=== PATIENT | male | born 1955 | race Caucasian/White ===

== ENCOUNTER → 2018-04-21 12:04 | Outpatient (CLI) | payer BC, SELFPAY ==
[2018-04-21 14:46] LABS: Anion Gap 14.4 mEq/L (5-15); Blood Urea Nitrogen 9 mg/dL (7-18); Calcium 9.6 mg/dL (8.5-10.1); Carbon Dioxide 28 mmol/L (21.0-32.0); Chloride 106 mmol/L (98-107); Estimated Glomerular Filt Rate 97 ml/min (>60); GFR (African American) 118 ML/MIN (>60); Glucose 97 mg/dL (74-106); Potassium 4.4 mmoL/L (3.5-5.1); Sodium 144 mmol/L (136-145)
== END ==
PROVIDERS: Family Provider Family Medicine; PCP Family Medicine; Visit Provider Internal Medicine Gastroenterology
DX: R19.5 Other fecal abnormalities (principal); D50.9 Iron deficiency anemia, unspecified
CPT/HCPCS: 36415; 80048

== ENCOUNTER → 2018-04-28 10:25 | Outpatient (CLI) | payer BC, SELFPAY ==
[2018-04-28 11:12] LABS: Blood Urea Nitrogen 8 mg/dL (7-18); Creatinine,Serum 0.81 mg/dL (0.70-1.30); Estimated Glomerular Filt Rate 96 ml/min (>60); GFR (African American) 116 ML/MIN (>60)
== END ==
PROVIDERS: PCP Family Medicine; Visit Provider Internal Medicine Gastroenterology
DX: R10.9 Unspecified abdominal pain (principal); D64.9 Anemia, unspecified
CPT/HCPCS: 36415; 82565; 84520

== ENCOUNTER → 2018-05-01 08:34 | Outpatient (CLI) | payer BC, SELFPAY | PROVIDERS: PCP Family Medicine; Visit Provider Internal Medicine Gastroenterology | DX: R10.9 Unspecified abdominal pain (principal); R63.4 Abnormal weight loss; D64.9 Anemia, unspecified ==

== ENCOUNTER → 2018-05-04 07:42 | Outpatient (CLI) | payer BC, SELFPAY ==
--- NOTE | 2018-05-04 08:01 | CT_ITS ---
CT abdomen pelvis w con CLINICAL INDICATION: Abdominal pain and weight loss with anemia ITS.REASON: ABD PAIN, WEIGHT LOSS, ANEMIA ORDERING PHYSICIAN: Franko Segal MD PATIENT AGE: 63 years COMPARISON: None TECHNIQUE: Axial images obtained with sagittal and coronal reformats. Images are obtained immediately post contrast injection and with a 62nd delay. All CT scans at the facility use one or more dose reduction, viz: automated exposure control, ma/kV adjustment per patient size (including targeted exams where dose is matched to indication, i.e. head), or iterative reconstruction technique. PROCEDURE: Oral Contrast: Breeza 1500 mL's IV Contrast: 100 mL of Isovue-370. FINDINGS: No acute finding in the lower chest. There is a subpleural nodular opacity in the left lower lobe laterally at 12 x 6 mm. An additional 5 mm nodular subpleural opacity is present in the left lower lungs inferiorly. A 6 mm subpleural nodule is present in the right lower lung zone anteriorly. The medium-sized hiatal hernia. Surgical clips are present in the epigastric region. The liver, spleen, adrenal glands, and kidneys have an unremarkable appearance aside from a 13 mm right renal cyst which is along the lateral aspect of the right kidney. There has been prior cholecystectomy. There is an atypical collection measuring 6.2 cm AP, 4.8 cm transverse, and 4.17 m cephalad to caudad which is situated inferior to the medial aspect of the spleen, posterior and inferior to the upper body of the stomach, and along the superior aspect of the junction of the pancreatic body and tail. This has a slightly heterogeneous appearance mostly isodense with some increased density along the inferior aspect of this collection. There are a few interspersed gas bubbles. This could represent an abscess or an infected pseudocyst. A necrotic mass arising from the posterior aspect of the body of the stomach or the superior aspect of the pancreas is also a consideration. This is not amenable to percutaneous aspiration/drainage but could be accessed by the transgastric approach. I would recommend a repeat CT scan with positive oral contrast before any intervention to sure this does not represent an abnormally dilated loop of bowel which does not appear to be the case however, negative oral contrast is utilized for CT enterography on today's exam. A linear metallic density is present in the right lower quadrant presumed to represent a surgical clip. Clip is also present in the epigastric region. No intestinal obstruction or free air. No evidence of appendicitis or diverticulitis. 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 The SMA has an unremarkable appearance. No evidence of aortic aneurysm. The JOE is patent. No acute bony anomalies. There is a 4.6 cm fluid collection in the right pelvic region which is felt to represent a bladder diverticulum. There is mild thickening of the urinary bladder wall. Prostate is enlarged at 6.4 x 5.7 cm. Coarse calcification is present centrally. IMPRESSION: 1. Abnormal 6 x 4.8 cm left upper quadrant fluid collection sitting superior to the junction of the body and tail the pancreas, medial to the spleen, along the posterior and infra aspect of the history of wall the stomach. This may represent an abscess or infected pseudocyst. A necrotic mass in the stomach or pancreas is also a consideration. This is not accessible to percutaneous aspiration but should be accessible to endoscopic transgastric aspiration. However, with strongly suggest repeat exam with positive oral contrast to assure this does not represent an abnormally dilated loop of bowel. 2. Bilateral lower lobe pulmonary nodules. Recommend [address] chest follow-up. 3. Enlarged prostate. 4. Right-sided urinary bladder diverticulum
== END ==
PROVIDERS: PCP Family Medicine; Visit Provider Internal Medicine Gastroenterology
DX: R10.9 Unspecified abdominal pain (principal); R63.4 Abnormal weight loss; D64.9 Anemia, unspecified
CPT/HCPCS: 74177; Q9967

== ENCOUNTER 2020-05-19 13:20 | Outpatient (CLI) | payer MEDICARE, SELFPAY ==
[2020-05-19 13:40] VITALS: BP 126/67; PULSE 83; RESP 18; TEMP 36.2; O2SAT 99
[2020-05-19 14:05] VITALS: BP 138/77; PULSE 85; RESP 18
== END 2020-05-19 14:05 | disposition home or self-care (01) ==
LOC: INF 13:23
PROVIDERS: PCP Family Medicine; Visit Provider Internal Medicine Medical Oncology
DX: D50.9 Iron deficiency anemia, unspecified (principal); K90.9 Intestinal malabsorption, unspecified
CPT/HCPCS: 96365; Q0138

== ENCOUNTER 2020-05-23 13:10 | Outpatient (CLI) | payer MEDICARE, SELFPAY ==
[2020-05-23 13:30] VITALS: BP 129/67; PULSE 88; RESP 18; TEMP 36.3; O2SAT 100
[2020-05-23 13:50] VITALS: BP 117/66; PULSE 83; RESP 18
== END 2020-05-23 14:00 | disposition home or self-care (01) ==
LOC: INF 13:14
PROVIDERS: Visit Provider Internal Medicine Medical Oncology
DX: K90.9 Intestinal malabsorption, unspecified (principal)
CPT/HCPCS: 96374; Q0138

== ENCOUNTER 2020-08-25 10:05 | Outpatient (CLI) | payer MEDICARE, SELFPAY ==
[2020-08-25 10:55] VITALS: BP 99/72; PULSE 86; RESP 18; O2SAT 98
[2020-08-25 11:15] VITALS: BP 135/71; PULSE 81; RESP 18
[2020-08-25 11:46] VITALS: BP 129/69; PULSE 81; RESP 18
== END 2020-08-25 11:46 | disposition home or self-care (01) ==
LOC: INF 10:08
PROVIDERS: Visit Provider Physician Assistant Medical
DX: K90.9 Intestinal malabsorption, unspecified (principal); D50.9 Iron deficiency anemia, unspecified
CPT/HCPCS: 96374; Q0138

== ENCOUNTER 2020-08-29 10:09 | Outpatient (CLI) | payer MEDICARE, SELFPAY ==
[2020-08-29 10:57] VITALS: BP 128/75; PULSE 84; RESP 18; TEMP 36.4; O2SAT 100
[2020-08-29 11:27] VITALS: BP 130/82; PULSE 79; RESP 16; O2SAT 100
[2020-08-29 11:55] VITALS: BP 124/79; PULSE 82; RESP 16; TEMP 36.5; O2SAT 99
== END 2020-08-29 12:00 | disposition home or self-care (01) ==
LOC: INF 10:09
DX: D50.9 Iron deficiency anemia, unspecified (principal)
CPT/HCPCS: 96365; Q0138

== ENCOUNTER → 2020-10-21 10:11 | Outpatient (POV) | payer MEDICARE, SELFPAY | PROVIDERS: Visit Provider Dermatology | DX: Z00.00 Encounter for general adult medical examination without abnormal findings (principal) ==

== ENCOUNTER → 2020-12-23 10:10 | Outpatient (CLI) | payer MEDICARE, SELFPAY ==
[2020-12-23 10:50] VITALS: BP 129/70; PULSE 79; RESP 17; TEMP 36.8; O2SAT 97
[2020-12-23 11:25] VITALS: BP 121/71; PULSE 73; RESP 17; TEMP 36.8; O2SAT 97
== END ==
PROVIDERS: Visit Provider Physician Assistant Medical
DX: D50.9 Iron deficiency anemia, unspecified (principal); K90.9 Intestinal malabsorption, unspecified
CPT/HCPCS: 96365; Q0138

== ENCOUNTER 2020-12-26 09:50 | Outpatient (CLI) | payer MEDICARE, SELFPAY ==
[2020-12-26 10:32] VITALS: BP 126/68; PULSE 79; RESP 17; TEMP 36.7; O2SAT 97
[2020-12-26 11:07] VITALS: BP 144/76; PULSE 75; RESP 17; TEMP 36.8; O2SAT 96
== END 2020-12-26 11:10 | disposition home or self-care (01) ==
LOC: INF 09:58
PROVIDERS: Visit Provider Physician Assistant Medical
DX: D50.9 Iron deficiency anemia, unspecified (principal)
CPT/HCPCS: 96365; Q0138

== ENCOUNTER 2021-04-17 11:21 | Outpatient (CLI) | payer MEDICARE, SELFPAY ==
[2021-04-17 11:40] VITALS: BP 122/72; PULSE 79; RESP 17; TEMP 36.7; O2SAT 100
[2021-04-17 12:40] VITALS: BP 114/62; PULSE 70; RESP 17; O2SAT 98
== END 2021-04-17 12:41 | disposition home or self-care (01) ==
LOC: INF 11:24
PROVIDERS: PCP Family Medicine; Visit Provider Physician Assistant Medical
DX: D50.9 Iron deficiency anemia, unspecified (principal); K90.9 Intestinal malabsorption, unspecified
CPT/HCPCS: 96365; Q0138

== ENCOUNTER 2021-04-21 11:13 | Outpatient (CLI) | payer MEDICARE, SELFPAY ==
[2021-04-21 10:25] VITALS: BP 135/70; PULSE 74; RESP 17; TEMP 36.7; O2SAT 98
--- NOTE | 2021-04-21 12:05 | PC.WOUNDNOTE ---
1205- infusion started at this time.
[2021-04-21 12:32] VITALS: BP 125/82; PULSE 79; RESP 17; TEMP 36.8; O2SAT 98
== END 2021-04-21 12:35 | disposition home or self-care (01) ==
LOC: INF 11:14
PROVIDERS: PCP Family Medicine; Visit Provider Physician Assistant Medical
DX: D64.81 Anemia due to antineoplastic chemotherapy (principal); D50.9 Iron deficiency anemia, unspecified; K90.9 Intestinal malabsorption, unspecified
CPT/HCPCS: 96374; Q0138